=== PATIENT | female | born 1950 | race Caucasian/White ===

== ENCOUNTER → 2020-06-23 12:30 | Outpatient (CLI) | payer MEDICARE, OTHER ==
[2015-09-08 07:11] VITALS: BMI 38.3
[~2020-06-23 12:30] MED LIST: HYDROCODON-ACE1 EAC7 PO; TIROSINT88 MCG PO; ZOCOR80 MG PO
== END | disposition home or self-care (01) ==
LOC: D.CT 12:30
PROVIDERS: ATTEND Family Medicine
DX: J90 Pleural effusion, not elsewhere classified (principal)

== ENCOUNTER 2020-06-30 06:29 | Day surgery (SDC) | payer MEDICARE, OTHER ==
--- NOTE | 2020-06-29 14:24 | NUR ---
CONFIRMED PT APPT FOR 06/30/20 THINNERS: NO RIDE: YES ARRIVAL TIME: 0630 NPO: PT VERBALIZES UNDERSTANDING TO TAKE HER MORNING MED WITH A SIP OF WATER ONLY
[~2020-06-30] VITALS: Ht 162.6 cm; Wt 98.6 kg
[2020-06-30 06:53] LABS: CALC OSMOLALITY 270 mosm/kg (275-300); CALCIUM 9.4 mg/dL (8.5-10.1); CARBON DIOXIDE 26.3 mmol/L (21.0-32.0); CHLORIDE - SERUM 100 mmol/L (98-107); CREATININE - SERUM 0.8 mg/dL (0.6-1.3); GLUCOSE 122 mg/dL (74-106); POTASSIUM - SERUM 3.7 mmol/L (3.5-5.1); SODIUM 136 mmol/L (136-145); UREA NITROGEN 8 mg/dL (7-18); eGFR NON AFRICAN AMERICAN 75 mL/min (90-120)
[2020-06-30 07:01] LABS: APTT 27.3 SECONDS (22.8-39.4); INR 1.11 (0.85-1.17); PROTIME 13.3 SECONDS (11.6-15.0)
[2020-06-30] MEDS ORDERED: HCTZ25 MG (07:07)
[2020-06-30 07:09] VITALS: Ht 162.6 cm; Wt 98.6 kg
[2020-06-30 07:28] LABS: BASOPHILS 0.4 % (0-2); EOSINOPHILS 5.1 % (0-7); HEMATOCRIT 38.7 % (36.0-48.0); HEMOGLOBIN 12.9 g/dL (12-16); IMMATURE GRANULOCYTES 0.2 % (0-5); LYMPHOCYTE ABS# 1.59 10x3/uL (1.18-3.74); LYMPHOCYTES 27.9 % (15-50); MCH 28.9 pg (26.0-34.0); MCHC 33.3 g/dL (31.0-37.0); MCV 86.8 fL (80.0-100.0); MEAN PLATELET VOLUME 9.1 fL (7.4-10.4); MONOCYTES 6.5 % (2-11); NEUTROPHIL ABS# 3.41 10x3/uL (1.56-6.13); NEUTROPHILS 59.9 % (40-80); RBC 4.46 10x6/uL (4.00-5.40); RDW 13.2 % (11.5-14.5); WBC 5.7 10x3/uL (4.8-10.8)
[2020-06-30 08:16] LABS: PLATELET COUNT 430 10x3/uL (130-400)
--- NOTE | 2020-06-30 10:03 | NUR ---
BEDSIDE REPORT GIVEN TO ADA MARY.
--- NOTE | 2020-06-30 12:21 | NUR ---
1130 IV REMOVED AND INSTRUCTIONS GIVEN.
== END 2020-06-30 12:05 | disposition home or self-care (01) ==
LOC: D.SP 06:29 → D.RAD 09:00 → D.SP 12:05
PROVIDERS: Radiology Vascular & Interventional Radiology; ATTEND Family Medicine
DX: J90 Pleural effusion, not elsewhere classified (principal)